=== PATIENT | male | born 1985 | race African-American/Black ===

== ENCOUNTER 2017-03-03 22:00 | Emergency (ER) | payer OTHER ==
[~2017-03-03] VITALS: Ht 172.7 cm; Wt 188.0 kg
[~2017-03-03 22:00] MED LIST: HYDR-2768 PO; IBUP-238 PO
[2017-03-03 22:05] VITALS: BP 195/100; PULSE 125; RESP 18; TEMP 100.5; O2SAT 96
--- NOTE | 2017-03-03 22:18 | PD ---
HPI Chief Complaint: Cold / Flu Symptoms Time Seen by Provider: 22:16 Travel History International Travel<30 days: No Contact w/Intl Traveler<30days: No Traveled to known affect area: No History of Present Illness HPI C/O LOW GRADE FEVER, COUGH, DRY, NONPRODUCTIVE, C/O BODY ACHES WELL CHILLS. PATIENT DENIES N/V/D/ABDPAIN/GRAHAM/. CURRENTLY NO ALLEVIATING/ AGGRAVATING FACTORS ALL: NKDA PMHX: HTN, SLEEP APNEA, PNA PSHX-DENIES PFSH Past Medical History Hx Anticoagulant Therapy: No Cardiovascular Problems: Yes (HTN) Chemotherapy: No Cerebrovascular Accident: No Diabetes: No Diminished Hearing: No Musculoskeletal: Yes (BACK INJURY: 2007) Respiratory: No Pneumonia: Yes (2012) Sleep Apnea: Yes (?) Past Surgical History Surgical History: No Previous Surgery Social History Alcohol Use: Yes (RARE) Tobacco Use: No Substance Use: No Allergies-Medications (Allergen,Severity, Reaction): Coded Allergies: No Known Allergies (Unverified Adverse Reaction, Unknown, 03/03/17) Reported Meds & Prescriptions Reported Meds & Active Scripts Active Motrin (Ibuprofen) 800 Mg Tab 800 Mg PO TID Reported Hctz (Hydrochlorothiazide) 25 Mg Tab 25 Mg PO DAILY Review of Systems Except as stated in HPI: all other systems reviewed are Neg General / Constitutional: Positive: Chills Eyes: No: Visual changes HENT: Positive: Rhinorrhea Cardiovascular: No: Chest Pain or Discomfort Respiratory: Positive: Cough Gastrointestinal: No: Abdominal Pain Genitourinary: No: Dysuria Musculoskeletal: No: Pain Skin: No Rash Neurologic: No: Weakness Psychiatric: No: Depression Endocrine: No: Polydipsia Hematologic/Lymphatic: No: Easy Bruising Physical Exam Narrative GENERAL: SKIN: Warm and dry. HEAD: Atraumatic. Normocephalic. EYES: Pupils equal and round. No scleral icterus. No injection or drainage. ENT: No nasal bleeding or discharge. Mucous membranes pink and moist. BILATERAL TM HAS EFFUSION BUT WITHOUT ERYTHEMA NECK: Trachea midline. No JVD. CARDIOVASCULAR: Regular rate and rhythm. RESPIRATORY: No accessory muscle use. Clear to auscultation. Breath sounds equal bilaterally. GASTROINTESTINAL: Abdomen soft, non-tender, nondistended. MUSCULOSKELETAL: Extremities without clubbing, cyanosis, or edema. No obvious deformities. NEUROLOGICAL: Awake and alert. No obvious cranial nerve deficits. Motor grossly within normal limits. Five out of 5 muscle strength in the arms and legs. Normal speech. PSYCHIATRIC: Appropriate mood and affect; insight and judgment normal. Data Data Last Documented VS Vital Signs Date Time Temp Pulse Resp B/P (MAP) Pulse Ox O2 Delivery O2 Flow Rate FiO2 03/03/17 22:05 100.5 125 18 195/100 (131) 96 Room Air MDM Medical Decision Making Medical Screen Exam Complete: Yes Emergency Medical Condition: Yes Medical Record Reviewed: Yes Differential Diagnosis PNA V BRONCHITIS V FLU V VIRAL SYNDROME Narrative Course BASED ON NORMAL LUNG SOUNDS IT IS UNLIKELY TO BE A PNEUMONIA SYNDROME, MOST LIKELY TO BE RELATED TO VIRAL SYNDROME, WILL PROVIDE PATIENT WITH COUGH MEDICINE WELL TAMIFLU....ADDITIONALLY I PROVIDED WAIT AND SEE ABX ( PATIENT WAS VERY CONCERNED BECAUSE THE LAST TIME HE HAD SIMILAR SYMPTOMS HE DEVELOPED PNEUMONIA AND HAD TO BE ADMITTED TO HOSPITAL...HE WANTS TO AVOID THAT) Diagnosis Primary Impression: Acute bronchitis Qualified Codes: J20.9 - Acute bronchitis, unspecified Patient Instructions: Acute Bronchitis (ED), General Instructions Scripts Guaifenesin-Codeine Liq (Guaifenesin AC Liq) 100-10 Mg/5 Ml Syrp 10 ML PO Q6H Y for COUGH, #1 BOTTLE 0 Refills Prov: Juan Antonio Maritn MD 03/03/17 Azithromycin (Zithromax Z-Sravan) 250 Mg Dspk 250 MG PO DIRECTED for Infection, #1 DSPK 0 Refills 500 MG (2 tabs) day 1, then 1 tab days 2-5. Prov: Juan Antonio Martin MD 03/03/17 Oseltamivir (Tamiflu) 75 Mg Cap 75 MG PO BID for Mgmt Viral Infection for 5 Days, #10 CAP 0 Refills Prov: Juan Antonio Martin MD 03/03/17 Disposition: 01 DISCHARGE HOME Condition: Stable Juan Antonio Martin MD Mar 03, 2017 22:17
[2017-03-03] MEDS ORDERED: OSEL75 PO (22:30)
[2017-03-03] MEDS ORDERED: GUAISYP4 PO (22:30)
[2017-03-03] MEDS ORDERED: ZITHTAB PO (22:30)
[2017-03-03 22:44] VITALS: BP 140/69; PULSE 111; RESP 18; O2SAT 95
== END 2017-03-03 22:49 | disposition home or self-care (01) ==
LOC: NEPD 22:00
DX: J20.9 Acute bronchitis, unspecified (principal); I10 Essential (primary) hypertension; G47.30 Sleep apnea, unspecified; Z79.899 Other long term (current) drug therapy
CPT/HCPCS: 99284

== ENCOUNTER 2017-03-08 04:54 | Emergency (ER) | payer OTHER ==
[~2017-03-08] VITALS: Ht 175.3 cm; Wt 192.7 kg
[~2017-03-08 04:54] MED LIST changes: +GUAISYP4 PO; +OSEL75 PO; +ZITHTAB PO
[2017-03-08 05:03] VITALS: BP 150/108; PULSE 130; RESP 24; TEMP 102.8; O2SAT 94
[2017-03-08] MEDS ORDERED: HYDR25TA5 PO (05:09)
[2017-03-08] MEDS ORDERED: IBUP1TAB7 PO (05:09)
--- NOTE | 2017-03-08 05:28 | PD ---
HPI Chief Complaint: Fever Time Seen by Provider: 05:23 Travel History International Travel<30 days: No Contact w/Intl Traveler<30days: No Traveled to known affect area: No History of Present Illness HPI 31-year-old male patient presents to the ER today with 6 days history of body aches, fevers, coughing, nasal congestion, nausea, headaches, flulike symptoms, and has been on Tamiflu for several days, but states his symptoms are not getting better. He denies any chest pains, shortness of breath, abdominal pains , or other symptoms. He has been using Tylenol for the headaches and fevers. 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" STATED 03/08/17) Respiratory: No Pneumonia: Yes (2012) Sleep Apnea: Yes (USES CPAP FOR SLEEPING) Tetanus Vaccination: > 5 Years Past Surgical History Surgical History: No Previous Surgery Social History Alcohol Use: Yes (RARE) Tobacco Use: No ("WHEN I WAS IN HIGH SCHOOL") Substance Use: No Allergies-Medications (Allergen,Severity, Reaction): Coded Allergies: No Known Allergies (Unverified Adverse Reaction, Unknown, 03/08/17) Reported Meds & Prescriptions Reported Meds & Active Scripts Active Guaifenesin AC Liq (Guaifenesin-Codeine Liq) 100-10 Mg/5 Ml Syrp 10 Ml PO Q6H PRN Zithromax Z-Sravan (Azithromycin) 250 Mg Dspk 250 Mg PO DIRECTED 500 MG (2 tabs) day 1, then 1 tab days 2-5. Tamiflu (Oseltamivir Phosphate) 75 Mg Cap 75 Mg PO BID 5 Days Reported Ibuprofen 800 Mg Tab 800 Mg PO Q8H PRN Hydrochlorothiazide 25 Mg Tab 25 Mg PO DAILY Review of Systems Except as stated in HPI: all other systems reviewed are Neg Physical Exam Narrative GENERAL: Well-developed large young -Malaysian male patient currently in mild distress. Awake and oriented 3. SKIN: Focused skin assessment warm/dry. HEAD: Atraumatic. Normocephalic. EYES: Pupils equal and round. No scleral icterus. No injection or drainage. ENT: No nasal bleeding or discharge. Mucous membranes pink and moist. Notable for pharyngeal erythema without significant uvular edema, asymmetry. NECK: Trachea midline. No JVD. Supple. CARDIOVASCULAR: Regular rate and rhythm. No murmur appreciated. RESPIRATORY: No accessory muscle use. Clear to auscultation. Breath sounds equal bilaterally. GASTROINTESTINAL: Abdomen soft, non-tender, nondistended. Hepatic and splenic margins not palpable. MUSCULOSKELETAL: No obvious deformities. No clubbing. No cyanosis. No edema. NEUROLOGICAL: Awake and alert. No obvious cranial nerve deficits. Motor grossly within normal limits. Normal speech. PSYCHIATRIC: Appropriate mood and affect; insight and judgment normal. Data Data Last Documented VS Vital Signs Date Time Temp Pulse Resp B/P (MAP) Pulse Ox O2 Delivery O2 Flow Rate FiO2 03/08/17 06:35 104 20 135/57 (83) 03/08/17 05:30 96 03/08/17 05:30 2.00 03/08/17 05:30 Nasal Cannula 03/08/17 05:03 102.8 Orders Orders Sepsis Workup Initiated (03/08/17 ) Complete Blood Count With Diff (03/08/17 05:23) Comprehensive Metabolic Panel (03/08/17 05:23) Lactic Acid Sepsis Protocol (03/08/17 05:23) Urinalysis - C+S If Indicated (03/08/17 05:23) Influenzae A/B Antigen (03/08/17 05:23) Blood Culture (03/08/17 05:23) Chest, Single Ap (03/08/17 05:23) Blood Glucose (03/08/17 05:23) Ecg Monitoring (03/08/17 05:23) Iv Access Insert/Monitor (03/08/17 05:23) Oximetry (03/08/17 05:23) Oxygen Administration (03/08/17 05:23) Sodium Chlor 0.9% 1000 Ml Inj (Ns 1000 M (03/08/17 05:30) Acetaminophen (Tylenol) (03/08/17 05:30) Ibuprofen (Motrin) (03/08/17 06:45) Group A Rapid Strep Screen (03/08/17 06:38) Strep Culture (Group A) (03/08/17 06:40) Labs Laboratory Tests Test 03/08/17 05:35 03/08/17 06:56 White Blood Count 7.9 TH/MM3 Red Blood Count 5.32 MIL/MM3 Hemoglobin 16.0 GM/DL Hematocrit 46.5 % Mean Corpuscular Volume 87.3 FL Mean Corpuscular Hemoglobin 30.1 PG Mean Corpuscular Hemoglobin Concent 34.5 % Red Cell Distribution Width 12.4 % Platelet Count 211 TH/MM3 Mean Platelet Volume 9.0 FL Neutrophils (%) (Auto) 69.9 % Lymphocytes (%) (Auto) 16.6 % Monocytes (%) (Auto) 13.3 % Eosinophils (%) (Auto) 0.2 % Basophils (%) (Auto) 0.0 % Neutrophils # (Auto) 5.5 TH/MM3 Lymphocytes # (Auto) 1.3 TH/MM3 Monocytes # (Auto) 1.1 TH/MM3 Eosinophils # (Auto) 0.0 TH/MM3 Basophils # (Auto) 0.0 TH/MM3 CBC Comment DIFF FINAL Differential Comment Blood Urea Nitrogen 9 MG/DL Creatinine 1.00 MG/DL Random Glucose 116 MG/DL Total Protein 8.0 GM/DL Albumin 3.6 GM/DL Calcium Level 8.7 MG/DL Alkaline Phosphatase 57 U/L Aspartate Amino Transf (AST/SGOT) 31 U/L Alanine Aminotransferase (ALT/SGPT) 50 U/L Total Bilirubin 0.4 MG/DL Sodium Level 136 MEQ/L Potassium Level 3.5 MEQ/L Chloride Level 102 MEQ/L Carbon Dioxide Level 27.3 MEQ/L Anion Gap 7 MEQ/L Estimat Glomerular Filtration Rate 105 ML/MIN Lactic Acid Level 1.1 mmol/L Urine pH 7.0 Urine Protein NEG mg/dL Urine Glucose (UA) NEG mg/dL Urine Ketones NEG mg/dL Urine Occult Blood NEG Urine Nitrite NEG Urine Bilirubin NEG Urine Leukocyte Esterase NEG MDM Medical Decision Making Medical Screen Exam Complete: Yes Emergency Medical Condition: Yes Medical Record Reviewed: Yes Interpretation(s) Last 24 hours Impressions Chest X-Ray 03/08/17522 Signed Impressions: Service Date/Time: Wednesday, March 08, 2017 05:41 - CONCLUSION: No evidence of acute cardiopulmonary disease. Narendra Archuleta MD Laboratory Tests Test 03/08/17 05:35 03/08/17 06:56 Monocytes (%) (Auto) 13.3 % (0.0-8.0) Monocytes # (Auto) 1.1 TH/MM3 (0-0.9) Random Glucose 116 MG/DL (74-106) Differential Diagnosis Fevers, flulike activities, nausea, headaches: Influenza versus sepsis versus pneumonia versus dehydration versus metabolic issues Narrative Course Influenza and rapid strep is negative per chest x-ray was unremarkable. UA did not show signs UTI. Lab work did not show significant leukocytosis or lactate elevation. At this point, symptoms are more indicative of a viral syndrome. He has been on Zithromax and Tamiflu for about 5 days. He was given Tylenol and ibuprofen in the ER for his fevers. At this point, I'm not suspecting underlying sepsis. Patient has no meningeal signs. My plan would be to release him with further symptomatic relief for fevers and pain. Return for any worsening in symptoms as necessary. The plan has been discussed with him and he states understanding. Diagnosis Primary Impression: Viral syndrome Disposition: DISCHARGE HOME Condition: Stable Swapna Brown MD Mar 08, 2017 05:28
[2017-03-08 05:30] VITALS: BP 119/60; PULSE 118; RESP 20; O2SAT 96
[2017-03-08] MEDS ORDERED: SODIUM CHLOR 0.9% 1000 ML INJ 1,000 ML IV ONE (05:30)
[2017-03-08] MEDS ORDERED: ACETAMINOPHEN 325 MG TAB PO ONE (05:30)
--- NOTE | 2017-03-08 05:58 | RADRPT ---
EXAM DATE/TIME: 03/08/2017 05:41 [facility] COMPARISON: CHEST SINGLE AP, December 24, 2012, 6:15. INDICATIONS : Fever, cough. MEDICAL HISTORY : Hypertension. Sleep apnea. SURGICAL HISTORY : None. ENCOUNTER: Initial ACUITY: 1 week PAIN SCORE: 0/10 LOCATION: Bilateral chest FINDINGS: A single view of the chest demonstrates the lungs to be symmetrically aerated without evidence of mas s, infiltrate or effusion. The cardiomediastinal contours are unremarkable. Osseous structures are intact. CONCLUSION: No evidence of acute cardiopulmonary disease. Narendra Archuleta MD on March 08, 2017 at 5:56 Board Certified Radiologist. This report was verified electronically.
[2017-03-08 06:04] LABS: AUTOMATED NEUTROPHIL # 5.5 TH/MM3 (1.8-7.7); EOSINOPHIL % 0.2 % (0.0-4.0); HEMATOCRIT 46.5 % (39.0-51.0); HEMO FLAGS DIFF FINAL; LYMPH % 16.6 % (9.0-44.0); LYMPHOCYTE # 1.3 TH/MM3 (1.0-4.8); MEAN CELL VOLUME 87.3 FL (80.0-100.0); MEAN CORPUSCULAR HEMOGLOBIN 30.1 PG (27.0-34.0); MEAN CORPUSCULAR HGB CONC 34.5 % (32.0-36.0); MONO % 13.3 % (0.0-8.0); NEUT % 69.9 % (16.0-70.0); PLATELET COUNT 211 TH/MM3 (150-450); RED BLOOD COUNT 5.32 MIL/MM3 (4.50-5.90); RED CELL DISTRIBUTION WIDTH 12.4 % (11.6-17.2); WHITE BLOOD COUNT 7.9 TH/MM3 (4.0-11.0)
[2017-03-08 06:08] LABS: CHLORIDE 102 MEQ/L (98-107); POTASSIUM 3.5 MEQ/L (3.5-5.1); SODIUM (NA) 136 MEQ/L (136-145)
[2017-03-08 06:11] LABS: ANION GAP 7 MEQ/L (5-15); BICARBONATE 27.3 MEQ/L (21.0-32.0)
[2017-03-08 06:12] LABS: BLOOD UREA NITROGEN 9 MG/DL (7-18)
[2017-03-08 06:15] LABS: ALT (GPT) 50 U/L (12-78); AST (GOT) 31 U/L (15-37); GLOMERULAR FILTRATION RATE 105 ML/MIN (>89)
[2017-03-08 06:16] LABS: TOTAL BILIRUBIN ADULT 0.4 MG/DL (0.2-1.0)
[2017-03-08 06:17] LABS: ALKALINE PHOSPHATASE 57 U/L (45-117)
[2017-03-08 06:35] VITALS: BP 135/57; PULSE 104; RESP 20
[2017-03-08] MEDS ORDERED: IBUPROFEN 800 MG TAB PO ONE (06:45)
[2017-03-08 07:06] LABS: BLOOD, URINE NEG (NEG); GLUCOSE,URINE NEG (NEG); KETONE, URINE NEG (NEG); NITRITE,URINE NEG (NEG)
[2017-03-08 07:09] LABS: METHOD OF COLLECTION CLEAN CATCH; URINE COLOR YELLOW (YELLW/STRAW)
[2017-03-08 07:10] LABS: COMMENT (UR) CULT NOT INDICATED; CULTURE IF INDICATED CULT NOT INDICATED; SQUAMOUS EPITHELIAL CELL URINE 0-5 /hpf (0-5)
== END 2017-03-08 07:28 | disposition home or self-care (01) ==
LOC: PHED 04:54
DX: B34.9 Viral infection, unspecified (principal); I10 Essential (primary) hypertension
CPT/HCPCS: 71010; 80053; 81001; 83605; 85025; 87040; 87081; 87804; 87880; 96360; 99284; J7030

== ENCOUNTER 2017-06-12 09:31 | Emergency (ER) | payer OTHER ==
[~2017-06-12 09:31] MED LIST changes: -HYDR-2768 PO; +HYDR25TA5 PO; -IBUP-238 PO; +IBUP1TAB7 PO
[2017-06-12 09:39] VITALS: BP 169/77; PULSE 90; RESP 20; TEMP 98.2; O2SAT 99
[2017-06-12] MEDS ORDERED: KETOROLAC TROMETHAMINE 60 MG/2 ML (IM) VIAL IM ONE (09:45)
[2017-06-12] MEDS ORDERED: ORPHENADRINE INJ 60 MG/2 ML AMP IM ONE (09:45)
[2017-06-12] MEDS ORDERED: ROBA500T PO (09:56)
[2017-06-12] MEDS ORDERED: IBUP1TAB7 PO (09:56)
--- NOTE | 2017-06-12 09:56 | PD ---
HPI Chief Complaint: Back/ Neck Pain or Injury Time Seen by Provider: 09:37 Travel History International Travel<30 days: No Contact w/Intl Traveler<30days: No Traveled to known affect area: No History of Present Illness HPI 31-year-old male, [employer] employee, presents to the emergency department after bending over and then when he stood up he heard a "tear and a pop" in his low back within the past 10-15 minutes, while here while at work. He has history of chronic low back pain. Pain radiates down both of his legs. He denies paresthesias, loss of sensation, decreased range motion, decreased strength to bilateral lower extremities. Denies encopresis, incontinence, saddle anesthesias. Denies IV drug use or cancer. Pain is midline. Worse on the left side. Rates pain 10/10. Denies describes it as a stabbing and shooting sensation. Worse with movement. Better when he flexes his legs up. No known allergies. Primary care provider is Dr. Lucero. History of hypertension. Has no other medical complaints. No other modifying factors or associated signs and symptoms. PFSH Past Medical History Hx Anticoagulant Therapy: No Cardiovascular Problems: Yes (HTN) Chemotherapy: No Cerebrovascular Accident: No Diabetes: No Diminished Hearing: No Hypertension: Yes Musculoskeletal: Yes (BACK INJURY: 2007 "BULGING DISC" STATED 03/08/17) Respiratory: No Pneumonia: Yes (2012) Sleep Apnea: Yes (USES CPAP FOR SLEEPING) Tetanus Vaccination: > 5 Years Social History Alcohol Use: Yes (RARE) Tobacco Use: No ("WHEN I WAS IN HIGH SCHOOL") Substance Use: No Allergies-Medications (Allergen,Severity, Reaction): Coded Allergies: No Known Allergies (Unverified Adverse Reaction, Unknown, 03/08/17) Reported Meds & Prescriptions Reported Meds & Active Scripts Active Robaxin (Methocarbamol) 500 Mg Tab 500 Mg PO QID PRN Ibuprofen 800 Mg Tab 800 Mg PO Q6HR PRN Reported Ibuprofen 800 Mg Tab 800 Mg PO Q8H PRN Hydrochlorothiazide 25 Mg Tab 25 Mg PO DAILY Review of Systems Except as stated in HPI: all other systems reviewed are Neg Physical Exam Narrative GENERAL: Well-nourished, well-developed black male patient, in no acute distress ; afebrile, nontoxic-appearing; appears painful SKIN: Warm and dry. HEAD: Atraumatic. Normocephalic. EYES: Pupils equal and round. No scleral icterus. No injection or drainage. ENT: Mucosa pink and moist. Airway patent. NECK: Trachea midline. CARDIOVASCULAR: Regular rate. RESPIRATORY: No accessory muscle use. GASTROINTESTINAL: morbidly Obese. MUSCULOSKELETAL: Bilateral lower extremities supple and non-tense with 2+ pedal pulses and sensory intact; with full range of motion and 5/5 strength. 2 + DTRs bilaterally. Active dorsiflexion and extension of bilateral feet. Bilateral straight leg raise is positive for low back pain; worse on left. Ambulatory in room with normal gait. Sitting up in bed at 90. No obvious deformities. No clubbing. No cyanosis. No edema. BACK: Midline point tenderness on palpation of the lumbar spine. Tenderness on palpation of bilateral lumbar paraspinal/iliosacral area. No obvious deformities. NEUROLOGICAL: Awake and alert. Oriented 3. No obvious cranial nerve deficits. Motor grossly within normal limits. Normal speech. Moves all extremities. 5/5 strength to all extremities. Sensory intact. PSYCHIATRIC: Appropriate mood and affect; insight and judgment normal. Data Data Last Documented VS Vital Signs Date Time Temp Pulse Resp B/P (MAP) Pulse Ox O2 Delivery O2 Flow Rate FiO2 06/12/17 09:39 98.2 90 20 169/77 (107) 99 Orders Orders Ketorolac Inj (Toradol Inj) (06/12/17 09:45) Orphenadrine Inj (Norflex Inj) (06/12/17 09:45) Spine, Lumbar - Ltd (Ap & Lat) (06/12/17 09:46) Diazepam (Valium) (06/12/17 10:45) MDM Medical Decision Making Medical Screen Exam Complete: Yes Emergency Medical Condition: Yes Medical Record Reviewed: Yes Differential Diagnosis Low back strain, acute exacerbation of chronic low back pain, sciatica Narrative Course 31-year-old male with acute exacerbation of chronic low back pain, low back strain after bending over to tie her shoe and and standing straight up and developing instant pain in his lower back. The patient is a [employer] employee and this occurred within the last 10-15 minutes here at work. He has history of chronic low back pain. Denies encopresis, incontinence, saddle anesthesias. Denies IV drug use or cancer. Physical exam is limited at first secondary to the patient being in excruciating pain and not wanting to sit up in the bed. I will order Toradol and Norflex an x-ray of the lumbar spine and reassess the patient after the medication is given time to take affect. 1045: Lumbar spine x-ray concludes: Lumbar Spine X-Ray 06/12/17 0946 Signed Impressions: Service Date/Time: Monday, June 12, 2017 10:00 - CONCLUSION: No acute disease. Narendra Mukherjee MD X-ray findings were discussed with the patient. Dr. Gipson evaluated the patient and ordered some Valium to be administered. Instructed patient to follow up with orthopedics as needed. Instructed patient to follow up with primary care provider. Patient verbalizes understanding and agreement with treatment plan. Patient is medically cleared and stable for discharge. Discussed reasons to return to the emergency department. Patient agrees with treatment plan. The patients vital signs are stable and the patient is stable for outpatient follow- up and treatment. Patient discharged home, stable and in no acute distress. Diagnosis Primary Impression: Low back strain Qualified Codes: S39.012A - Strain of muscle, fascia and tendon of lower back , initial encounter Additional Impression: Acute exacerbation of chronic low back pain Referrals: Primary Care Physician Patient Instructions: Acute Low Back Pain (ED), General Instructions, Low Back Strain (ED) Departure Forms: Tests/Procedures, Work Release Enter return to work date: Jun 14, 2017 Additional Instructions: Tylenol or ibuprofen as directed and as needed for pain Robaxin as prescribed and as needed for muscle spasms Heating pad and/or ice to affected area to reduce pain Avoid aggravating activities; increase activity as tolerated Follow-up with primary care provider Return to emergency department immediately with worsening of symptoms Med/Other Pt SpecificInfo: Prescription(s) given Scripts Methocarbamol (Robaxin) 500 Mg Tab 500 MG PO QID Y for MUSCLE SPASM, #30 TAB 0 Refills Prov: Estrella Salinas 06/12/17 Ibuprofen (Ibuprofen) 800 Mg Tab 800 MG PO Q6HR Y for PAIN, #30 TAB 0 Refills Prov: Estrella Salinas 06/12/17 Disposition: 01 DISCHARGE HOME Condition: Stable Estrella Salinas Jun 12, 2017 09:56
--- NOTE | 2017-06-12 10:23 | RADRPT ---
EXAM DATE/TIME: 06/12/2017 10:00 [facility] COMPARISON: No previous studies available for comparison. INDICATIONS : Lower back pain during extension. MEDICAL HISTORY : Hypertension. Sleep apnea. SURGICAL HISTORY : None. ENCOUNTER: Initial ACUITY: 1 day PAIN SCORE: 10/10 LOCATION: Lower back. FINDINGS: Two view examination was performed. There are five non-rib bearing vertebral bodies. The vertebral bodies are in normal alignment without evidence of subluxation or scoliosis. The disc spaces are humberto ntained. The pedicles are intact. Bony mineralization is normal. No fracture is identified. CONCLUSION: No acute disease. Narendra Mukherjee MD on June 12, 2017 at 10:21 Board Certified Radiologist. This report was verified electronically.
[2017-06-12] MEDS ORDERED: DIAZEPAM 5 MG TAB PO ONE (10:45)
--- NOTE | 2017-06-12 10:52 | PD ---
Physical Exam Narrative I, Dr. Gipson, have reviewed the advance practice practitioner's documentation and am in agreement, met with the patient face to face, made the diagnosis, and the medical decision making was done by me. *My assessment and Findings: Chronic back pain vs. musculoskeletal pain 31yo M with chronic back pain here with lower back pain today. Pt was bending down and got up and felt sharp pain in his lower back. Pain is sharp, worst with movement. Pt denies any fall, focal weakness or numbness, fever, IVDA, chest pain, sob, n/v, abdominal pain. No red flags. Pt given toradol and orphenadrine by my PA. Pt reevaluated at bedside and pain has improved slightly. Will give a dose of valium. Pain is more musculoskeletal. Xray LS showed no acute disease. Return precautions given. Data Data Last Documented VS Vital Signs Date Time Temp Pulse Resp B/P (MAP) Pulse Ox O2 Delivery O2 Flow Rate FiO2 06/12/17 09:39 98.2 90 20 169/77 (107) 99 Orders Orders Ketorolac Inj (Toradol Inj) (06/12/17 09:45) Orphenadrine Inj (Norflex Inj) (06/12/17 09:45) Spine, Lumbar - Ltd (Ap & Lat) (06/12/17 09:46) Diazepam (Valium) (06/12/17 10:45) Ed Discharge Order (06/12/17 10:51) [facility] Supervised Visit with JOYCE: Yes Diagnosis Primary Impression: Low back strain Qualified Codes: S39.012A - Strain of muscle, fascia and tendon of lower back , initial encounter Additional Impression: Acute exacerbation of chronic low back pain Referrals: Primary Care Physician Patient Instructions: General Instructions, Low Back Strain (ED), Acute Low Back Pain (ED) Departure Forms: Work Release, Tests/Procedures Additional Instruction: Tylenol or ibuprofen as directed and as needed for pain Robaxin as prescribed and as needed for muscle spasms Heating pad and/or ice to affected area to reduce pain Avoid aggravating activities; increase activity as tolerated Follow-up with primary care provider Return to emergency department immediately with worsening of symptoms Scripts Methocarbamol (Robaxin) 500 Mg Tab 500 MG PO QID Y for MUSCLE SPASM, #30 TAB 0 Refills Prov: Estrella Salinas 06/12/17 Ibuprofen (Ibuprofen) 800 Mg Tab 800 MG PO Q6HR Y for PAIN, #30 TAB 0 Refills Prov: Estrella Salinas 06/12/17 Disposition: 01 DISCHARGE HOME Condition: Stable Farnaz Gipson DO Jun 12, 2017 10:52
== END 2017-06-12 11:07 | disposition home or self-care (01) ==
LOC: NEPD 09:31
DX: S39.012A Strain of muscle, fascia and tendon of lower back, initial encounter (principal); G89.29 Other chronic pain; I10 Essential (primary) hypertension; X50.9XXA Other and unspecified overexertion or strenuous movements or postures, initial encounter
CPT/HCPCS: 72100; 96372; 99283; J1885; J2360